=== PATIENT | male | born 1975 | race Caucasian/White ===

== ENCOUNTER 2017-05-06 10:57 | Emergency (ER) | payer OTHER, BC ==
[~2017-05-06] VITALS: Ht 190.5 cm; Wt 116.3 kg
[~2017-05-06 10:57] MED LIST: FLUO20CA16 PO
[2017-05-06 11:07] VITALS: BP 124/76
--- NOTE | 2017-05-06 11:16 | PHYS DOC ---
General Chief Complaint: SHOULDER INJURY Stated Complaint: SHOULDER PAIN Time Seen by MD: 11:11 Source: patient Exam Limitations: no limitations Problems: History of Present Illness Timing/Duration: other (pleasant 41-year-old male was reaching up to for a roll of toilet paper and felt a pop in the back of his right shoulder. This happened at 9:50 AM. Since that he is having pain with motion. There's been no deformity. He denies previous injury to shoulder. He is able to move but it hurts everywhere. This happened while he was working.) Severity: moderate Associated Symptoms: denies symptoms Allergies: Coded Allergies: No Known Drug Allergies (Unverified , 07/24/13) Past Medical History Medical History: no pertinent history Review of Systems All Other Systems: Reviewed and Negative Physical Exam Ear, Nose, Throat: hearing grossly normal Neck: non-tender Respiratory: chest non-tender Cardiovascular: normal peripheral pulses Extremities: other (right shoulder tender posteriorly to the proximal humerus. There is full range of motion. Able to touch his left shoulder. There is no swelling redness or deformity. Passive full range of motion.) Neurologic/Psychiatric: other (radian ulnar and median nerve are intact motor and sensation) Skin: normal color Orders, Labs, Meds I suspect rotator cuff injury. We'll obtain x-rays. If normal will apply sling, NSAIDs for a couple of days with close outpatient follow-up. Three-view right shoulder study Indications: Right shoulder pain after lifting injury Findings: No acute fracture or dislocation or osteolytic process is seen. No AC joint separation is evident. There are degenerative cystic changes of the lateral aspect of the proximal right humeral head which may be secondary to chronic acromial humeral space impingement which may result in rotator cuff disease. Old healed right rib cage fractures are seen. IMPRESSION: No acute osseous abnormality. Acromial humeral space impingement. DICTATED AND SIGNED BY: MIKEY CHAN MD DATE: 05/06/17 1125 CC: TRACIE SHAH MD; NON,STAFF ~ Rotator cuff injury. Treat with NSAIDS, sling for 2 days and PMD follow up. TRACIE SHAH MD May 06, 2017 11:16
--- NOTE | 2017-05-06 11:29 | RAD ---
Three-view right shoulder study Indications: Right shoulder pain after lifting injury Findings: No acute fracture or dislocation or osteolytic process is seen. No AC joint separation is evident. There are degenerative cystic changes of the lateral aspect of the proximal right humeral head which may be secondary to chronic acromial humeral space impingement which may result in rotator cuff disease. Old healed right rib cage fractures are seen. IMPRESSION: No acute osseous abnormality. Acromial humeral space impingement.
[2017-05-06] MEDS ORDERED: IBUPROFEN 600 MG TABLET. PO ONE (11:45)
== END 2017-05-06 11:53 | disposition home or self-care (01) ==
LOC: ER 10:57
DX: S46.001A Unspecified injury of muscle(s) and tendon(s) of the rotator cuff of right shoulder, initial encounter (principal); X58.XXXA Exposure to other specified factors, initial encounter; Y93.89 Activity, other specified; Y99.8 Other external cause status; Y92.89 Other specified places as the place of occurrence of the external cause
CPT/HCPCS: 73030; 99284